=== PATIENT | male | born 1955 | race Caucasian/White ===

== ENCOUNTER 2023-03-15 12:01 | Emergency (ER) | payer SELFPAY ==
[~2023-03-15] VITALS: Ht 182.9 cm; Wt 63.6 kg
[2023-03-15 12:06] VITALS: BP 119/70; PULSE 97; RESP 16; TEMP 98
[2023-03-15 13:15] LABS: COVID AG,FIA SOURCE NASAL SWAB
[2023-03-15 13:35] LABS: SARS-COV2 (COVID) ANTIGEN,FIA Negative (Negative)
[2023-03-15 13:39] LABS: INFLUENZA TYPE A NEGATIVE FOR TYPE A (NEGATIVE); INFLUENZA TYPE B NEGATIVE FOR TYPE B (NEGATIVE)
== END 2023-03-15 14:31 | disposition left against medical advice (07) ==
LOC: EDUNIT# 12:01 → EMS 12:03 → EDBD 12:03 → EMS 14:31
DX: Z53.21 Procedure and treatment not carried out due to patient leaving prior to being seen by health care provider (principal); Z20.822 Contact with and (suspected) exposure to COVID-19
CPT/HCPCS: 87804; 99281; Z7502

== ENCOUNTER 2025-05-24 12:11 | Emergency (ER) | payer MEDICARE, MEDICAID ==
[~2025-05-24] VITALS: Ht 180.3 cm; Wt 63.6 kg
[2025-05-24] MEDS ORDERED: IBUP-1492 PO (15:23)
[2025-05-24 15:26] VITALS: BP 109/66; PULSE 85; RESP 18; TEMP 98.2; O2SAT 99
== END 2025-05-24 15:32 | disposition home or self-care (01) ==
LOC: EMS 12:13
DX: M19.031 Primary osteoarthritis, right wrist (principal); M19.032 Primary osteoarthritis, left wrist
CPT/HCPCS: 99283